=== PATIENT | female | born 1960 | race American Indian/Alaskan Native ===

== ENCOUNTER 2016-09-26 08:07 | Outpatient (CLI) | payer OTHER ==
--- NOTE | 2016-09-26 11:05 | Mammography Report ---
BILATERAL MAMMOGRAM: FINDINGS: There are scattered fibroglandular densities (approximately 25%-50% glandular). No mass, distortion, suspicious calcification, or skin change is seen. There are no significant changes when compared to her prior study in January 2015. CAD was utilized. IMPRESSION: Negative mammogram. There is no mammographic evidence of malignancy. RECOMMENDATION: Follow-up per ACS guidelines. BI-RADS CATEGORY: 1 = Negative ACR BI-RADS MAMMOGRAPHIC CODES: 0 = Needs additional imaging evaluation; 1 = Negative; 2 = Benign; 3 = Probably benign; 4 = Suspicious; 5 = Malignant; 6 = Known biopsy-proven malignancy COMMENT: 1. Dense breast tissue, i.e., adenosis, fibrocystic changes, etc., may obscure an underlying neoplasm. 2. Approximately 10% of cancers are not detected with mammography. 3. A negative mammography report should not delay biopsy if a clinically suspicious mass is present. COMMENT: Patient follow-up letters are generated in [employer].
== END 2016-09-26 08:08 | disposition home or self-care (01) ==
LOC: MAMMO 08:07
PROVIDERS: ATTEND Family Medicine
DX: Z12.31 Encounter for screening mammogram for malignant neoplasm of breast (principal)
CPT/HCPCS: 77067; G0202

== ENCOUNTER 2016-10-02 10:37 | Day surgery (SDC) | payer OTHER, SELFPAY ==
[2016-10-02] MEDS ORDERED: NACL 0.9% 1000 ML 1,000 ML IV SCH (12:00)
--- NOTE | 2016-10-02 12:29 | Anesthesia Consultation ---
Anesthesia Consult and Med Hx Date of service: 10/02/16 - Airway Anesthetic Teeth Evaluation: Good ROM Head & Neck: Adequate Mental/Hyoid Distance: Adequate Mallampati Class: Class II Intubation Access Assessment: Good - Pulmonary Exam CTA: Yes - Cardiac Exam Cardiac Exam: RRR - Pre-Operative Health Status ASA Pre-Surgery Classification: ASA3 Proposed Anesthetic Plan: MAC - Cardiovascular System Hx Hypertension: Yes Hx Heart Attack/AMI: Yes (CAD)
[2016-10-02] MEDS ORDERED: WATER FOR IRRIG STERILE IR ONE (12:54)
--- NOTE | 2016-10-02 13:40 | Anesthesia Day of Surgery ---
Anesthesia Day of Surgery - Day of Surgery Patient Examined: Yes Patient H&P Reviewed: Yes Patient is NPO: Yes Beta Blockers: Yes (10/02)
[2016-10-02] MEDS ORDERED: DIPRIVAN 10 MG/ML IV ONE ×3 (13:41)
[2016-10-02] MEDS ORDERED: XYLOCAINE MPF 2% ONE (13:47)
--- NOTE | 2016-10-02 14:17 | Short Stay Summary ---
Short Stay Documentation Date of service: 10/02/16 - History H&P: obtained from office - Allergies and Medications Current Medications: Allergies [place] Allergy (Uncoded 12/26/14 22:13) Rash Home Medications Medication Instructions Recorded Confirmed Last Taken Type Amoxicillin 500 mg PO BID #20 tablet 12/26/14 10/02/16 10/01/16 Rx Antipyrine/Benzocaine/Glycerin 2 drops AU Q8HR #1 bottle 12/26/14 10/02/1610/01 Rx [Auralgan Otic Soln] Fluticasone [Flonase] 1 spray NS QDAY #1 bottle 12/26/14 10/02/16 10/01/16 Rx Adult Low Dose Aspirin EC 81 mg PO DAILY 10/01/16 10/02/16 10/01/16 History Atenolol 50 mg PO DAILY 10/01/16 10/02/16 10/01/16 History Levothyroxine 100 mg PO DAILY 10/01/16 10/02/16 10/01/16 History Lovastatin 40 mg PO DAILY 10/01/16 10/02/16 10/01/16 History Active Medications Sodium Chloride (Nacl 0.9% 1000 Ml) 1,000 mls @ 50 mls/hr IV DIRECT SHERRIE Last Admin: 10/02/16 12:11 Dose: 50 mls/hr - Brief post op/procedure progress note Date of procedure: 10/02/16 Findings: see dictation Estimated blood loss: none Pathology: list (descending colon polyp) Specimen disposition: to lab Condition: stable - Disposition Condition at discharge: Good Disposition: DISCHARGED TO HOME OR SELFCARE - Discharge Diagnoses (1) History of colonic polyps Status: Acute Short Stay Discharge Plan Activity: other (no driving for 24 hours. NO NSAIDS for 7 days) Weight Bearing Status: Full Weight Bearing Diet: regular
--- NOTE | 2016-10-02 14:19 | Operative Report ---
Operative Report Operative Report: Date of procedure: 10/02/2016 Preprocedure diagnosis: History of colon polyps. Last study 5 years ago. Post procedure diagnosis: 8 mm pedunculated descending colon polyp Procedure: Colonoscopy to the cecum with snare polypectomy with cautery Endoscopist: Dr. Blackburn Anesthesia: Monitored anesthesia care per anesthesia department Estimated blood loss: 0 Medications: Monitored anesthesia care. See separate report by anesthesia for details. After careful discussion of the nature and purpose of the procedure as well as details of the technique risks benefits and alternatives the patient gave consent. Please see recent history and physical from the office. The patient was placed in the left lateral decubitus position and medicated per anesthesia. A rectal exam was performed sphincter tone was normal there were no masses palpable. The [place] 570 scope was passed transanally and advanced under continuous direct vision without difficulty to the cecum. The colon was well prepared. The cecum was normal. The ascending colon was normal and on forward and retroflexed views. The transverse colon and sigmoid colon were normal. There was an 8 mm polyp on a long stalk in the descending colon. The polyp was removed with snare electrocautery without difficulty and retrieved by suction. No bleeding was encountered. The rectum was normal on forward and retroflexed views. The procedure was well-tolerated overall and the patient was observed in recovery. Conclusions: 8 mm descending colon polyp.. Plan: The patient will call the office in one week regarding the pathology. Repeat colonoscopy in 5 years. Signed electronically: Koffi Blackburn M.D.
[2016-10-02 14:45] VITALS: BP 127/66
== END 2016-10-02 10:38 | disposition home or self-care (01) ==
LOC: GIO 10:37
PROVIDERS: ATTEND Internal Medicine Gastroenterology
DX: Z12.11 Encounter for screening for malignant neoplasm of colon (principal); D12.4 Benign neoplasm of descending colon; I25.810 Atherosclerosis of coronary artery bypass graft(s) without angina pectoris; E03.9 Hypothyroidism, unspecified; I10 Essential (primary) hypertension; Z95.1 Presence of aortocoronary bypass graft
CPT/HCPCS: 45385; 88305; J2704; J7030

== ENCOUNTER 2017-11-05 10:34 | Outpatient (CLI) | payer OTHER ==
--- NOTE | 2017-11-05 16:01 | Mammography Report ---
BILATERAL DIGITAL SCREENING MAMMOGRAM with CAD: 11/05/17 10:34:00 CLINICAL: Routine screening. COMPARISON: 09/26/16 FINDINGS: There are bilateral scattered areas of fibroglandular density.No mass, architectural distortion or suspicious calcifications. IMPRESSION: No mammographic evidence of malignancy. BI-RADS CATEGORY: 1 -- Negative RECOMMENDATION: Routine mammographic screening in one year. COMMENT: Patient follow-up letters are generated by our [employer] application.
== END 2017-11-05 10:35 | disposition home or self-care (01) ==
LOC: MAMMO 10:34
PROVIDERS: ATTEND Family Medicine
DX: Z12.31 Encounter for screening mammogram for malignant neoplasm of breast (principal)
CPT/HCPCS: 77067

== ENCOUNTER 2019-02-24 10:22 | Outpatient (CLI) | payer OTHER ==
--- NOTE | 2019-02-24 11:57 | Mammography Report ---
Bilateral mammogram: Compared to 11/05/17. CAD study utilized. Findings: Predominance adipose tissue bilaterally. No mass or microcalcification. The benign density left breast. Normal axilla. Impression: Benign findings. Annual followup recommended. BI-RADS CATEGORY: 2 = Benign ACR BI-RADS MAMMOGRAPHIC CODES: 0 = Needs additional imaging evaluation; 1 = Negative; 2 = Benign; 3 = Probably benign; 4 = Suspicious; 5 = Malignant; 6 = Known biopsy-proven malignancy COMMENT: 1. Dense breast tissue, i.e., adenosis, fibrocystic changes, etc., may obscure an underlying neoplasm. 2. Approximately 10% of cancers are not detected with mammography. 3. A negative mammography report should not delay biopsy if a clinically suspicious mass is present. COMMENT: Patient follow-up letters are generated in [employer].
== END 2019-02-24 10:23 | disposition home or self-care (01) ==
LOC: MAMMO 10:22
PROVIDERS: ATTEND Internal Medicine
DX: Z12.31 Encounter for screening mammogram for malignant neoplasm of breast (principal); I10 Essential (primary) hypertension
CPT/HCPCS: 77067

== ENCOUNTER 2021-05-30 09:41 | Emergency (ER) | payer OTHER ==
[2021-05-30 10:20] VITALS: BP 129/61
--- NOTE | 2021-05-30 10:25 | Emergency Department Report ---
ED Extremity Problem HPI - General Chief complaint: Extremity Injury, Lower Stated complaint: PAINS TO LEGS Time Seen by Provider: 05/30/21 10:20 Source: patient Mode of arrival: Ambulatory Limitations: No Limitations - History of Present Illness Initial comments: The patient was evaluated in the emergency department for symptoms described in the history of present illness. He/she was evaluated in the context of the global COVID-19 pandemic, which necessitated consideration that the patient might be at risk for infection with the virus that causes COVID-19. Institutional protocols and algorithms that pertain to the evaluation of patients at risk for COVID-19 are in a state of rapid change based on information released by regulatory bodies including the CDC and federal and state organizations. These policies and algorithms were followed during the patient's care in the emergency department. Please note that these policies, procedures and recommendations changed on a rapid basis. 61-year-old morbid obese -[place] female presents to the emergency room complaining of pain to both legs for about 2 weeks. Patient denies any trauma denies any recent travel. She states that she took Aleve on Friday. She does have a primary care provider at [facility]. Patient denies any shortness of breath chest pain or recent travels. MD Complaint: extremity pain Location: left, right, lower extremity History of Same: No -: Yes myalgia Severity scale (0 -10): 5 Quality: aching Consistency: intermittent Improves with: rest Worsens with: walking Associated Symptoms: denies other symptoms - Related Data Home Medications Medication Instructions Recorded Confirmed Last Taken Adult Low Dose Aspirin EC 81 mg PO DAILY 10/01/16 10/02/16 10/01/16 Atenolol 50 mg PO DAILY 10/01/16 10/02/16 10/01/16 Levothyroxine 100 mg PO DAILY 10/01/16 10/02/16 10/01/16 Lovastatin 40 mg PO DAILY 10/01/16 10/02/16 10/01/16 Previous Rx's Medication Instructions Recorded Last Taken Type Amoxicillin 500 mg PO BID #20 tablet 12/26/14 10/01/16 Rx Antipyrine/Benzocaine/Glycerin 2 drops AU Q8HR #1 bottle 12/26/14 10/01/16 Rx [Auralgan Otic Soln] Fluticasone [Flonase] 1 spray NS QDAY #1 bottle 12/26/14 10/01/16 Rx Allergies Allergy/AdvReac Type Severity Reaction Status Date / Time [place] Allergy Rash Uncoded 12/26/14 22:13 ED Review of Systems ROS: Stated complaint: PAINS TO LEGS Other details as noted in HPI Comment: All other systems reviewed and negative ED Past Medical Hx - Past Medical History Hx Hypertension: Yes Hx Heart Attack/AMI: Yes (CAD) Additional medical history: hypothyroid - Surgical History Hx Open Heart Surgery: Yes (CABG x 3 vessel) - Social History Smoking Status: Former Smoker - Medications Home Medications: Home Medications Medication Instructions Recorded Confirmed Last Taken Type Amoxicillin 500 mg PO BID #20 tablet 12/26/14 10/02/16 10/01/16 Rx Antipyrine/Benzocaine/Glycerin 2 drops AU Q8HR #1 bottle 12/26/14 10/02/16 10/01/16 Rx [Auralgan Otic Soln] Fluticasone [Flonase] 1 spray NS QDAY #1 bottle 12/26/14 10/02/16 10/01/16 Rx Adult Low Dose Aspirin EC 81 mg PO DAILY 10/01/16 10/02/16 10/01/16 History Atenolol 50 mg PO DAILY 10/01/16 10/02/16 10/01/16 History Levothyroxine 100 mg PO DAILY 10/01/16 10/02/16 10/01/16 History Lovastatin 40 mg PO DAILY 10/01/16 10/02/16 10/01/16 History ED Physical Exam - General Limitations: No Limitations General appearance: alert, in no apparent distress - Head Head exam: Present: atraumatic, normocephalic - Eye Eye exam: Present: normal appearance - ENT ENT exam: Present: normal external ear exam - Neck Neck exam: Present: normal inspection, full ROM, lymphadenopathy - Respiratory Respiratory exam: Present: normal lung sounds bilaterally. Absent: respiratory distress, accessory muscle use - Cardiovascular Cardiovascular Exam: Present: regular rate, normal heart sounds - Extremities Exam Extremities exam: Present: normal inspection, full ROM. Absent: tenderness, pedal edema, joint swelling, calf tenderness - Back Exam Back exam: Present: normal inspection, full ROM - Neurological Exam Neurological exam: Present: alert, oriented X3, normal gait - Psychiatric Psychiatric exam: Present: normal affect, normal mood - Skin Skin exam: Present: warm, dry, intact, normal color. Absent: rash ED Course Vital Signs 05/30/21 10:17 Temperature 98.4 F Pulse Rate 52 L Respiratory 16 Rate Blood Pressure 129/61 [Left] O2 Sat by Pulse 98 Oximetry ED Medical Decision Making - Medical Decision Making 61-year-old morbid obese -[place] female presents to the emergency room complaining of pain to both legs for about 2 weeks. Patient denies any trauma denies any recent travel. She states that she took Aleve on Friday. She does have a primary care provider at [facility]. Patient denies any shortness of breath chest pain or recent travels. Patient has a complete extremity examination that is normal. Recommend patient to follow-up with her primary care provider. Patient to take Tylenol or ibuprofen as needed for pain management. No x-rays or imaging is needed as patient does not have any trauma no obvious deformity. Critical care attestation.: If time is entered above; I have spent that time in minutes in the direct care of this critically ill patient, excluding procedure time. ED Disposition Clinical Impression: Bilateral leg pain Disposition: 01 HOME / SELF CARE / HOMELESS Is pt being admited?: No Does the pt Need Aspirin: No Condition: Stable Instructions: Pain Without a Known Cause Additional Instructions: You can take Tylenol or ibuprofen as needed for pain management. Very important you follow-up with your primary care provider next 2 to 3 days for further evaluation. Referrals: [facility] [Other] - 3-5 Days Time of Disposition: 10:27
== END 2021-05-30 10:40 | disposition home or self-care (01) ==
LOC: ED 09:41
DX: M79.604 Pain in right leg (principal); M79.605 Pain in left leg; I10 Essential (primary) hypertension; I25.10 Atherosclerotic heart disease of native coronary artery without angina pectoris; E03.9 Hypothyroidism, unspecified; Z98.890 Other specified postprocedural states; Z87.891 Personal history of nicotine dependence; Z88.6 Allergy status to analgesic agent
CPT/HCPCS: 99281